=== PATIENT | female | born 1960 | race African-American/Black ===

== ENCOUNTER → 2017-02-10 | Outpatient (CLI) | payer MEDICARE, OTHER ==
[2015-07-12 11:18] VITALS: BP 153/63
[~2017-02-10] MED LIST: ASPI-482 PO; CLOP75TA PO; CLOP75TA57 PO; GADOBUTROL 10 MMOL/10 ML VIAL IV ONE; INSU100C4 SQ; INSU100V13 SQ; LOSA100T6 PO; METO25TA4 PO; OMEP40CA5 PO
--- NOTE | 2017-02-10 16:28 | KCIC ---
EXAMINATION: Magnetic resonance imaging (MRI) of the lumbar spine without contrast HISTORY: Severe radiculopathy in L5 distribution, asymmetric to the right. TECHNIQUE: Multiplanar multi-weighted MRI of the lumbar spine was performed without intravenous contrast using the standard lumbar spine protocol. Contrast information: None administered COMPARISON: None available. FINDINGS: The alignment of the lumbar spine is normal. Modic type II endplate degenerative changes are identified involving the anterior superior endplate of L5 and S1. There are no compression fractures. The conus medullaris terminates at the level of L1. The distal spinal cord signal intensity is normal. There is disc desiccation at L5-S1 with annular fissure. Limited views of the abdomen and pelvis show no soft tissue abnormality. The aorta is normal. L3-L4: The disc is normal in configuration. There is mild facet arthropathy. There is no neuroforaminal stenosis. There is no spinal canal stenosis. L4-L5: The disc is normal in configuration. There is moderate facet arthropathy with posteriorly oriented synovial cysts. Fluid is noted within the facet joints. There is mild neuroforaminal stenosis. There is no spinal canal stenosis. L5-S1: There is a central disc extrusion with narrowing of the left lateral recess. Findings are exacerbated by epidural lipomatosis There is severe facet arthropathy. There is moderate right and severe left neuroforaminal stenosis. There is mild spinal canal stenosis. IMPRESSION: There is a central disc extrusion at L5-S1 with severe facet arthropathy resulting in mild left lateral recess stenosis. There is severe left neural foraminal stenosis and moderate right neural foraminal stenosis at this level with mild spinal canal stenosis. Electronically signed by: Kenyatta Bello MD (02/10/2017 4:24 PM) [facility]-[id number]
== END | disposition home or self-care (01) ==
LOC: KCIC MRI 15:15
PROVIDERS: ATTEND Internal Medicine Cardiovascular Disease
DX: M48.061 Spinal stenosis, lumbar region without neurogenic claudication (principal); M71.38 Other bursal cyst, other site; E11.9 Type 2 diabetes mellitus without complications; I10 Essential (primary) hypertension; J45.909 Unspecified asthma, uncomplicated
CPT/HCPCS: 72148

== ENCOUNTER 2021-05-14 09:09 | Inpatient (IN) | payer BC, MEDICARE ==
[~2021-05-14] VITALS: Ht 157.5 cm; Wt 97.5 kg
[~2021-05-14 09:09] MED LIST changes: -GADOBUTROL 10 MMOL/10 ML VIAL IV ONE; +LOSA100T14 PO; -LOSA100T6 PO; -OMEP40CA5 PO; +OMEP40CA7 PO
--- NOTE | 2021-05-14 09:53 | PHYS DOC ---
Past Medical History Past Medical History: Bronchitis, CVA, Diabetes-Type II, Hypertension, TIA Additional Past Medical Histor: " THEY HAVE HAD TO STRETCH MY THROAT" LEFT SIDED RESIDUAL WEAKNESS Past Surgical History: No Surgical History Additional Past Surgical Histo: STENT PLACEMENT Smoking Status: Never Smoker Alcohol Use: None Drug Use: None General Adult EDM: Chief Complaint: FLU SYMPTOM HPI: HPI: Patient is a 61 year old female who presents with cough, shortness of breath, intermittent chest pain nausea/vomiting x7 days. Patient states she has been coughing up yellow phlegm. Patient states that she has not been able to eat anything due to decreased appetite. Denies fevers. Denies chest pain at this time. Chest pain is worse with coughing and taking a deep breath. patient has history of diabetes, CVA, hypertension, COPD. Patient has been fully vaccinated for COVID-19. Review of Systems: Review of Systems: ROS At least 10 ROS systems have been reviewed and are negative except as documented in the HPI. General: Negative except as outlined in HPI above. Skin: Negative except as outlined in HPI above. HEENT: Negative except as outlined in HPI above. Neck: Negative except as outlined in HPI above. Respiratory: Negative except as outlined in HPI above.. Cardiovascular: Negative except as outlined in HPI above. Abdomen: Negative except as outlined in HPI above. : Negative except as outlined in HPI above. Back/MSK: Negative except as outlined in HPI above. Neuro: Negative except as outlined in HPI above. Psych: Negative except as outlined in HPI above. Heart Score: C/O Chest Pain: Yes HEART Score for Chest Pain: HEART Score for Chest Pain Response (Comments) Value History Moderately Suspicious 1 ECG Normal 0 Age >45 - < 65 1 Risk Factors >3 Risk Factors or Hx CAD 2 Troponin < Normal Limit 0 Total 4 Risk Factors: Risk Factors: DM, Current or recent (<one month) smoker, HTN, HLP, family history of CAD, obesity. Risk Scores: Score 0 - 3: 2.5% MACE over next 6 weeks - Discharge Home Score 4 - 6: 20.3% MACE over next 6 weeks - Admit for Clinical Observation Score 7 - 10: 72.7% MACE over next 6 weeks - Early Invasive Strategies Allergies: Allergies: Allergies Coded Allergies Type Severity Reaction Last Updated Verified Sulfa (Sulfonamide Antibiotics) Allergy Severe Shortness of Air 07/12/15 Yes erythromycin base Allergy Intermediate 07/12/15 Yes pantoprazole Allergy Intermediate 07/12/15 Yes Physical Exam: PE: Constitutional: Well developed, well nourished, no acute distress, non-toxic appearance. [] HENT: Normocephalic, atraumatic, bilateral external ears normal, oropharynx moist, no oral exudates, nose normal. [] Eyes: PERRLA, EOMI, conjunctiva normal, no discharge. [] Neck: Normal range of motion, no tenderness, supple, no stridor. [] Cardiovascular:Heart rate regular rhythm, no murmur [] Lungs & Thorax: Bilateral breath sounds clear to auscultation [] Abdomen: Bowel sounds normal, soft, no tenderness, no masses, no pulsatile masses. [] Skin: Warm, dry, no erythema, no rash. [] Back: No tenderness, no CVA tenderness. [] Extremities: No tenderness, no cyanosis, no clubbing, ROM intact, no edema. [] Neurologic: Alert and oriented X 3, normal motor function, normal sensory function, no focal deficits noted. [] Psychologic: Affect normal, judgement normal, mood normal. [] EKG: EKG: [] Radiology/Procedures: Radiology/Procedures: []INDICATION: Reason: sob / Spl. Instructions: / History: COMPARISON: May 2013 FINDINGS: Single view of chest obtained. The mediastinal silhouette is unremarkable. Mild interstitial and groundglass opacities. Degenerative changes of shoulders and spine. IMPRESSION: * Mild interstitial and groundglass opacities bilaterally. Could be from mild edema or mild interstitial infiltrate. Electronically signed by: Jasvir Cloud MD (05/14/2021 10:42 AM) [id number] Course & Med Decision Making: Course & Med Decision Making Pertinent Labs and Imaging studies reviewed. (See chart for details) [] 61-year-old female presents with cough, shortness of breath, chest pain, nausea/vomiting for the last 7 days. Afebrile. Heart rate was slightly elevated on arrival, 108. Denies taking any daily meds due to nausea. Before work-up in ER consisted of labs, EKG, chest x-ray, UA. Patient given Zofran for nausea. BNP, 994. BUN, 30. Creatinine 1.7. Heart score 4. Rapid Covid test is positive. Patient states that she does not think that she can go home due to weakness and vomiting. Patient states she was having trouble ambulating to the bathroom on her own due to feeling so weak. Upon reassessment patient states that she feels like her speech is more slurred than normal. States that the increase and slurred speech started 1 month ago. Patient denies being seen by a physician at that time. CT head ordered. Dragon Disclaimer: Dragon Disclaimer: This electronic medical record was generated, in whole or in part, using a voice recognition dictation system. Departure Departure Impression: Primary Impression: COVID Additional Impressions: Pneumonia Qualified Codes: J18.9 - Pneumonia, unspecified organism Weakness Disposition: HOME / SELF CARE / HOMELESS Admitting Physician: MIRIAM Condition: STABLE Referrals: NO PCP (PCP) COLIN ELLIOTT APRN May 14, 2021 09:53
[2021-05-14] MEDS ORDERED: DEXAMETHASONE SOD PHOS 20 MG/5 ML VIAL. IV ONE (10:00)
[2021-05-14] MEDS ORDERED: ONDANSETRON PF 4 MG/2 ML VIAL. IVP ONE (10:00)
[2021-05-14] MEDS ORDERED: IV NORMAL SALINE 1000ML BAG 1,000 ML IV ONE (10:00)
[2021-05-14 10:08] LABS: BASO % 1 % (0-3); EOS % 0 % (0-3); HEMATOCRIT 38.7 % (36.0-47.0); HEMOGLOBIN 12.9 g/dL (12.0-15.5); LYMPH # 1.4 x10^3/uL (1.0-4.8); LYMPH % 19 % (24-48); MEAN CORPUSCULAR HEMOGLOBIN 28 pg (25-35); MEAN CORPUSCULAR HGB CONC 33 g/dL (31-37); MEAN CORPUSCULAR VOLUME 83 fL (79-100); MONO # 0.8 x10^3/uL (0.0-1.1); MONO % 12 % (0-9); NEUT # 4.7 x10^3/uL (1.8-7.7); NEUT % 68 % (31-73); PLATELET COUNT 121 x10^3/uL (140-400); RED BLOOD COUNT 4.64 x10^6/uL (3.50-5.40); RED CELL DISTRIBUTION WIDTH 13.7 % (11.5-14.5)
[2021-05-14 10:21] LABS: CALCIUM 8.9 mg/dL (8.5-10.1); CREATININE 1.7 mg/dL (0.6-1.0); GFR 36.7; POTASSIUM 4.2 mmol/L (3.5-5.1)
[2021-05-14 10:24] LABS: ALBUMIN 2.6 g/dL (3.4-5.0); ALBUMIN/GLOBULIN RATIO 0.6 (1.0-1.7); MAGNESIUM 1.7 mg/dL (1.8-2.4); TOTAL BILIRUBIN 0.3 mg/dL (0.2-1.0); TOTAL PROTEIN 7.1 g/dL (6.4-8.2)
--- NOTE | 2021-05-14 10:44 | RAD ---
INDICATION: Reason: sob / Spl. Instructions: / History: COMPARISON: May 2013 FINDINGS: Single view of chest obtained. The mediastinal silhouette is unremarkable. Mild interstitial and groundglass opacities. Degenerative changes of shoulders and spine. IMPRESSION: * Mild interstitial and groundglass opacities bilaterally. Could be from mild edema or mild intersti tial infiltrate. Electronically signed by: Jasvir Cloud MD (05/14/2021 10:42 AM) [id number]
[2021-05-14 10:55] LABS: INFLUENZA A PATIENT NEGATIVE (NEGATIVE); INFLUENZA B PATIENT NEGATIVE (NEGATIVE)
--- NOTE | 2021-05-14 14:22 | PDOC1 ---
History and Physical Date of Service: DOS: DATE: 05/14/21 TIME: 14:16 Chief Complaint: Chief Complain: Flulike symptoms History of Present Illness: HPI: 61-year-old female with past medical history of CVA, diabetes mellitus type 2, hypertension, COPD who comes in with flulike symptoms for the past 7 days. Patient states that she has been coughing up yellow sputum. She has decreased appetite due to nausea vomiting. In the ED she vomited once and is unable to tolerate p.o. diet. Denies fevers, chest pain, shortness of breath, abdominal pain or diarrhea or hematuria or dysuria. Patient is vaccinated for Covid. Past Medical/Surgical History: PMH/PSH: Past Medical History: Bronchitis, CVA, Diabetes-Type II, Hypertension, TIA " THEY HAVE HAD TO STRETCH MY THROAT" LEFT SIDED RESIDUAL WEAKNESS Past Surgical History: STENT PLACEMENT Smoking Status: Never Smoker Alcohol Use: None Drug Use: None Allergies: Allergies: Coded Allergies: Sulfa (Sulfonamide Antibiotics) (Verified Allergy, Severe, Shortness of Air, 07/12/15) SOA erythromycin base (Verified Allergy, Intermediate, 07/12/15) pantoprazole (Verified Allergy, Intermediate, 07/12/15) Family History: Family History: Reviewed with no relevant findings Social History: Social History: Smoking Status: Never Smoker Alcohol Use: None Drug Use: None Current Medications: Current Medications Current Medications Ondansetron HCl (Zofran) 4 mg 1X ONCE IVP Last administered on 05/14/21at 10:05; Start 05/14/21 at 10:00; Stop 05/14/21 at 10:01; Status DC Sodium Chloride 1,000 ml @ 1,000 mls/hr 1X ONCE IV Last administered on 05/14/21at 10:05; Start 05/14/21 at 10:00; Stop 05/14/21 at 10:59; Status DC Dexamethasone Sodium Phosphate (Decadron) 10 mg 1X ONCE IV Last administered on 05/14/21at 10:05; Start 05/14/21 at 10:00; Stop 05/14/21 at 10:01; Status DC Active Scripts Active Reported Omeprazole 40 Mg Capsule.dr Unknown Dose PO DAILY Metoprolol Tartrate 25 Mg Tablet Unknown Dose PO BID Plavix (Clopidogrel Bisulfate) 75 Mg Tablet Unknown Dose PO DAILY Levemir (Insulin Detemir) 100 Unit/1 Ml Vial 30 Unit SQ QHS Novolog (Insulin Aspart) 100 Unit/1 Ml Cartridge 10 Unit SQ TIDWMEALS Aspir 81 (Aspirin) 81 Mg Tablet. 1 Tab PO DAILY Clopidogrel (Clopidogrel Bisulfate) 75 Mg Tablet 1 Tab PO DAILY Losartan Potassium 100 Mg Tablet 100 Mg PO [id number] ROS: Review of Systems Review of System REVIEW OF SYSTEMS: GENERAL: Denies weakness SKIN: No bruising, hair changes or rashes. EYES: No blurred, double or loss of vision. NOSE AND THROAT: No history of nosebleeds, hoarseness or sore throat. HEART: No history of palpitations, chest pain or shortness of breath on exertion. LUNGS: Positive for cough and shortness of breath GASTROINTESTINAL: Positive for nausea vomiting GENITOURINARY: No history of frequency, urgency, hesitancy or nocturia. NEUROLOGIC: Denies history of numbness, tingling, or tremor. PSYCHIATRIC: No history of panic, anxiety or depression. ENDOCRINE: No history of heat or cold intolerance, polyuria or polydipsia. EXTREMITIES: Denies joint pain, pain on walking or stiffness. Physical Exam: Vital Signs: Vital Signs Date Time Temp Pulse Resp B/P (MAP) Pulse Ox O2 Delivery O2 Flow Rate FiO2 05/14/21 09:20 98.9 105 12 158/72 (100) 98 Room Air 98.9 Physcial Exam: General: Well developed, well nourished, no acute distress, well appearing HEENT: Pupils equally round and reactive to light, EOMI, no discharge, normal conjunctiva Neck: Supple, no nuchal rigidity, no JVD, trachea midline, no tenderness Cardiac: RRR, no murmurs, no gallops, no rubs Chest/Lungs: CTAB, no wheeze, no rhonchi, no crackles Abdomen: soft, non-distended, no guarding, no peritoneal signs, non-tender Back: No tenderness Extremities: no edema, pulses intact, non-tender,capillary refill <3 sec bilateral upper and lower extremities, Neuro: Alert and oriented x 4, no focal deficits, normal speech Labs: Labs: Laboratory Tests Test 05/14/21 09:57 05/14/21 10:21 White Blood Count 7.0 x10^3/uL (4.0-11.0) Red Blood Count 4.64 x10^6/uL (3.50-5.40) Hemoglobin 12.9 g/dL (12.0-15.5) Hematocrit 38.7 % (36.0-47.0) Mean Corpuscular Volume 83 fL (79-100) Mean Corpuscular Hemoglobin 28 pg (25-35) Mean Corpuscular Hemoglobin Concent 33 g/dL (31-37) Red Cell Distribution Width 13.7 % (11.5-14.5) Platelet Count 121 x10^3/uL (140-400) Neutrophils (%) (Auto) 68 % (31-73) Lymphocytes (%) (Auto) 19 % (24-48) Monocytes (%) (Auto) 12 % (0-9) Eosinophils (%) (Auto) 0 % (0-3) Basophils (%) (Auto) 1 % (0-3) Neutrophils # (Auto) 4.7 x10^3/uL (1.8-7.7) Lymphocytes # (Auto) 1.4 x10^3/uL (1.0-4.8) Monocytes # (Auto) 0.8 x10^3/uL (0.0-1.1) Eosinophils # (Auto) 0.0 x10^3/uL (0.0-0.7) Basophils # (Auto) 0.0 x10^3/uL (0.0-0.2) D-Dimer (Delisa) 1.58 ug/mlFEU (0.00-0.50) Sodium Level 137 mmol/L (136-145) Potassium Level 4.2 mmol/L (3.5-5.1) Chloride Level 101 mmol/L (98-107) Carbon Dioxide Level 25 mmol/L (21-32) Anion Gap 11 (6-14) Blood Urea Nitrogen 30 mg/dL (7-20) Creatinine 1.7 mg/dL (0.6-1.0) Estimated GFR (Cockcroft-Gault) 36.7 BUN/Creatinine Ratio 18 (6-20) Glucose Level 163 mg/dL (70-99) Calcium Level 8.9 mg/dL (8.5-10.1) Magnesium Level 1.7 mg/dL (1.8-2.4) Total Bilirubin 0.3 mg/dL (0.2-1.0) Aspartate Amino Transf (AST/SGOT) 37 U/L (15-37) Alanine Aminotransferase (ALT/SGPT) 21 U/L (14-59) Alkaline Phosphatase 76 U/L (46-116) Troponin I High Sensitivity 46 ng/L (4-50) RV-Aqv-S-Type Natriuretic Peptide 994 pg/mL (0-124) Total Protein 7.1 g/dL (6.4-8.2) Albumin 2.6 g/dL (3.4-5.0) Albumin/Globulin Ratio 0.6 (1.0-1.7) Influenza Type A Antigen Negative (NEGATIVE) Influenza Type B Antigen Negative (NEGATIVE) SARS-CoV-2 Antigen (Rapid) Positive (NEGATIVE) Laboratory Tests Test 05/14/21 09:57 05/14/21 10:21 White Blood Count 7.0 x10^3/uL (4.0-11.0) Red Blood Count 4.64 x10^6/uL (3.50-5.40) Hemoglobin 12.9 g/dL (12.0-15.5) Hematocrit 38.7 % (36.0-47.0) Mean Corpuscular Volume 83 fL (79-100) Mean Corpuscular Hemoglobin 28 pg (25-35) Mean Corpuscular Hemoglobin Concent 33 g/dL (31-37) Red Cell Distribution Width 13.7 % (11.5-14.5) Platelet Count 121 x10^3/uL (140-400) Neutrophils (%) (Auto) 68 % (31-73) Lymphocytes (%) (Auto) 19 % (24-48) Monocytes (%) (Auto) 12 % (0-9) Eosinophils (%) (Auto) 0 % (0-3) Basophils (%) (Auto) 1 % (0-3) Neutrophils # (Auto) 4.7 x10^3/uL (1.8-7.7) Lymphocytes # (Auto) 1.4 x10^3/uL (1.0-4.8) Monocytes # (Auto) 0.8 x10^3/uL (0.0-1.1) Eosinophils # (Auto) 0.0 x10^3/uL (0.0-0.7) Basophils # (Auto) 0.0 x10^3/uL (0.0-0.2) D-Dimer (Delisa) 1.58 ug/mlFEU (0.00-0.50) Sodium Level 137 mmol/L (136-145) Potassium Level 4.2 mmol/L (3.5-5.1) Chloride Level 101 mmol/L (98-107) Carbon Dioxide Level 25 mmol/L (21-32) Anion Gap 11 (6-14) Blood Urea Nitrogen 30 mg/dL (7-20) Creatinine 1.7 mg/dL (0.6-1.0) Estimated GFR (Cockcroft-Gault) 36.7 BUN/Creatinine Ratio 18 (6-20) Glucose Level 163 mg/dL (70-99) Calcium Level 8.9 mg/dL (8.5-10.1) Magnesium Level 1.7 mg/dL (1.8-2.4) Total Bilirubin 0.3 mg/dL (0.2-1.0) Aspartate Amino Transf (AST/SGOT) 37 U/L (15-37) Alanine Aminotransferase (ALT/SGPT) 21 U/L (14-59) Alkaline Phosphatase 76 U/L (46-116) Troponin I High Sensitivity 46 ng/L (4-50) HU-Llo-J-Type Natriuretic Peptide 994 pg/mL (0-124) Total Protein 7.1 g/dL (6.4-8.2) Albumin 2.6 g/dL (3.4-5.0) Albumin/Globulin Ratio 0.6 (1.0-1.7) Influenza Type A Antigen Negative (NEGATIVE) Influenza Type B Antigen Negative (NEGATIVE) SARS-CoV-2 Antigen (Rapid) Positive (NEGATIVE) Images: Images PROCEDURE: CHEST AP ONLY INDICATION: Reason: sob / Spl. Instructions: / History: COMPARISON: May 2013 FINDINGS: Single view of chest obtained. The mediastinal silhouette is unremarkable. Mild interstitial and groundglass opacities. Degenerative changes of shoulders and spine. IMPRESSION: * Mild interstitial and groundglass opacities bilaterally. Could be from mild edema or mild interstitial infiltrate. Assessment/Plan Assessment/Plan Intractable nausea vomiting COVID-19 infection Acute on chronic kidney injury due to vasomotor nephropathy Hypomagnesemia Thrombocytopenia Debilitation and failure to thrive Morbid obesity History of diabetes mellitus type 2 History of hypertension History of CVA History of COPD/bronchitis Admit to hospitalist service for further management Continue IV fluids NPO and advance diet as tolerated Continue supportive care care for Covid infection. Patient not any oxygen at this time we will hold off on O2 therapy Strict I/O and monitor urine output IV electrolyte replacement R ISS and Accu-Cheks Heparin for DVT prophylaxis Protonix GI prophylaxis ADA diet CODE STATUS full Discussed with RN and SW Disposition inpatient management as above DPOA: Daughter Justifications for Admission Other Justification LARRY RIGGINS MD May 14, 2021 14:21
[2021-05-14] MEDS ORDERED: SENNOSIDES 8.6 MG TABLET PO PRN (14:30)
[2021-05-14] MEDS ORDERED: diphenhydrAMINE HCL 25 MG CAPSULE PO PRN (14:30)
[2021-05-14] MEDS ORDERED: PROCHLORPERAZINE 10 MG/2 ML VIAL. IV PRN (14:30)
[2021-05-14] MEDS ORDERED: ZOLPIDEM 5 MG TABLET. PO PRN (14:30)
[2021-05-14] MEDS ORDERED: ONDANSETRON PF 4 MG/2 ML VIAL. IVP PRN (14:30)
[2021-05-14] MEDS ORDERED: diphenhydrAMINE 50 MG/ML VIAL IVP PRN (14:30)
[2021-05-14] MEDS ORDERED: MAGNESIUM SULFATE 2GM 50 ML IV ONE (14:45)
[2021-05-14] MEDS ORDERED: cefTRIAXone IV Push 1 GM VIAL. IVP ONE (15:00)
--- NOTE | 2021-05-14 15:27 | RAD ---
CT HEAD INDICATION: Weakness COMPARISON: None Available. Exposure: One or more of the following individualized dose reduction techniques were utilized for thi s examination: 1. Automated exposure control 2. Adjustment of the mA and/or kV according to patient size 3. Use of iterative reconstruction technique TECHNIQUE: 5 mm contiguous axial images were obtained from the skull base to the vertex in both bone and soft tissue algorithm. FINDINGS: Mild bilateral periventricular white matter hypodensities likely chronic small vessel ischemic diseas e. No evidence of acute intracranial hemorrhage. No extra-axial fluid collections. No mass effect or midline shift. Ventricular size is appropriate. Basal cisterns are patent. No fractures identified.Rosales-white differentiation is preserved.Globes and orbits are within normal l imits. Paranasal sinuses and mastoid air cells are clear. IMPRESSION: No acute intracranial findings. Electronically signed by: Parth Espinosa MD (05/14/2021 3:24 PM) [id number]
--- NOTE | 2021-05-14 15:34 | EKG ---
[facility] [address] [place] [address] Test Date: 2021-05-14 Test Time: 09:32:42 Pat Name: JEANCARLOS OLIVARES Department: Room: ED HOLD 16 Gender: F Cell Inspector: : [id number] Requested By: COLIN ELLIOTT Order Number: [id number] Reading MD: Malcolm Deleon Measurements Intervals [place] Rate: 107 P: 59 NM: 120 QRS: 22 QRSD: 102 T: 62 QT: 342 QTc: 456 Interpretive Statements SINUS TACHYCARDIA QRS(T) CONTOUR ABNORMALITY CONSISTENT WITH INFERIOR INFARCT PROBABLY OLD Electronically Signed On 05-15-2021 15:00:23 DRAG SAWYER by Malcolm Deleon
[2021-05-14] MEDS ORDERED: AZITHRMYCN 500MG IVPB FOR OMNI 250 ML IV ONE (17:00)
[2021-05-14] MEDS: THIAMINE 100 MG TABLET. PO SCH (17:15)
[2021-05-14] MEDS: ZINC SULFATE 220 MG CAPSULE. PO SCH (17:15)
[2021-05-14] MEDS: ASCORBIC ACID 1,000 MG TABLET PO SCH ×2 (17:16→21:33)
[2021-05-14] MEDS: IV NORMAL SALINE 1000ML BAG 1,000 ML IV SCH ×2 (18:38→19:00)
[2021-05-14 19:00] VITALS: BP 153/76
--- NOTE | 2021-05-14 19:00 | NUR ---
The patient, JEANCARLOS OLIVARES, 61 y/o, F admitted by LARRY RIGGINS MD, was given written information regarding hospital policies, unit procedures and contact persons. Valuables were checked and left with her.
[2021-05-14] MEDS: INSULIN LISPRO 300 UNITS/3 ML VIAL. SQ SCH (20:29)
[2021-05-14] MEDS: DOCUSATE SODIUM 100 MG CAPSULE. PO PRN (21:32)
[2021-05-14] MEDS: LORazepam 0.5 MG TABLET PO PRN (21:32)
[2021-05-14] MEDS: diphenhydrAMINE HCL 25 MG CAPSULE PO PRN (21:32)
[2021-05-14] MEDS: ACETAMINOPHEN 325 MG TABLET. PO PRN (21:33)
[2021-05-14] MEDS: HEPARIN for SUB-Q USE 5,000 UNIT/ML VIAL. SQ SCH (21:35)
[2021-05-14 23:46] VITALS: BP 129/60
[2021-05-15] MEDS: IV NORMAL SALINE 1000ML BAG 1,000 ML IV SCH ×4 (02:01→20:30)
[2021-05-15 02:54] VITALS: BP 119/60
[2021-05-15 07:30] VITALS: BP 127/64
[2021-05-15 08:21] LABS: CALCIUM 7.9 mg/dL (8.5-10.1); CREATININE 1.5 mg/dL (0.6-1.0); GFR 42.4; MAGNESIUM 2.2 mg/dL (1.8-2.4); PHOSPHORUS 3.8 mg/dL (2.6-4.7); POTASSIUM 4.4 mmol/L (3.5-5.1)
[2021-05-15 08:22] LABS: BASO % 0 % (0-3); EOS % 0 % (0-3); HEMATOCRIT 37.4 % (36.0-47.0); HEMOGLOBIN 12.4 g/dL (12.0-15.5); LYMPH % 18 % (24-48); MEAN CORPUSCULAR HEMOGLOBIN 28 pg (25-35); MEAN CORPUSCULAR HGB CONC 33 g/dL (31-37); MEAN CORPUSCULAR VOLUME 84 fL (79-100); MONO # 0.5 x10^3/uL (0.0-1.1); MONO % 9 % (0-9); NEUT # 4.1 x10^3/uL (1.8-7.7); NEUT % 73 % (31-73); PLATELET COUNT 123 x10^3/uL (140-400); RED BLOOD COUNT 4.48 x10^6/uL (3.50-5.40); WHITE BLOOD COUNT 5.7 x10^3/uL (4.0-11.0)
[2021-05-15] MEDS: ZINC SULFATE 220 MG CAPSULE. PO SCH (08:50)
[2021-05-15] MEDS: THIAMINE 100 MG TABLET. PO SCH (08:50)
[2021-05-15] MEDS: ASCORBIC ACID 1,000 MG TABLET PO SCH ×3 (08:50→20:52)
[2021-05-15] MEDS: HEPARIN for SUB-Q USE 5,000 UNIT/ML VIAL. SQ SCH ×2 (08:52→20:53)
[2021-05-15] MEDS: INSULIN LISPRO 300 UNITS/3 ML VIAL. SQ SCH ×4 (08:53→17:30)
--- NOTE | 2021-05-15 10:16 | NUR ---
SW following. Discussed with RN, pt from [facility], room air, cardiac diet, COVID-19 positive. PT/OT/ST ordered. SW will continue to follow.
[2021-05-15] MEDS ORDERED: guaiFENesin/CODEINE 100mg/10mg 5 ML LIQUID PO PRN (10:45)
[2021-05-15 11:00] VITALS: BP 121/63
--- NOTE | 2021-05-15 11:33 | PDOC ---
[employer] PROGRESS NOTE Date of Service DOS: DATE: 05/15/21 TIME: 11:30 Chief Complaint Chief Complaint 1. COVID Pneumonia 2. Nausea/Vomiting 3. History of: CVA, COPD/bronchitis, HTN, type 2 diabetes, TIA History of Present Illness History of Present Illness Patient seen and examined Chart reviewed Discussed with RN Awaiting PT/OT evaluation and swallow study Patient currently on room air and resting comfortably Has PureWick in place, tolerating well Vitals/I&O Vitals/I&O: Vital Signs Date Time Temp Pulse Resp B/P (MAP) Pulse Ox O2 Delivery O2 Flow Rate FiO2 05/15/21 07:30 97.7 82 18 127/64 (85) 92 Room Air 97.7 I & O 05/14/21 05/14/21 05/15/21 14:59 22:59 06:59 Intake Total 670 ml 1120 ml Output Total 350 ml Balance 670 ml 770 ml Physical Exam General: Alert Heart: Regular rate Abdomen: Normal bowel sounds Extremities: No clubbing, No cyanosis Skin: No rashes, No breakdown Labs Labs: Laboratory Tests Test 05/14/21 17:12 05/14/21 20:00 05/15/21 07:35 05/15/21 07:59 Glucose (Fingerstick) 260 mg/dL (70-99) 311 mg/dL (70-99) 274 mg/dL (70-99) White Blood Count 5.7 x10^3/uL (4.0-11.0) Red Blood Count 4.48 x10^6/uL (3.50-5.40) Hemoglobin 12.4 g/dL (12.0-15.5) Hematocrit 37.4 % (36.0-47.0) Mean Corpuscular Volume 84 fL (79-100) Mean Corpuscular Hemoglobin 28 pg (25-35) Mean Corpuscular Hemoglobin Concent 33 g/dL (31-37) Red Cell Distribution Width 14.0 % (11.5-14.5) Platelet Count 123 x10^3/uL (140-400) Neutrophils (%) (Auto) 73 % (31-73) Lymphocytes (%) (Auto) 18 % (24-48) Monocytes (%) (Auto) 9 % (0-9) Eosinophils (%) (Auto) 0 % (0-3) Basophils (%) (Auto) 0 % (0-3) Neutrophils # (Auto) 4.1 x10^3/uL (1.8-7.7) Lymphocytes # (Auto) 1.0 x10^3/uL (1.0-4.8) Monocytes # (Auto) 0.5 x10^3/uL (0.0-1.1) Eosinophils # (Auto) 0.0 x10^3/uL (0.0-0.7) Basophils # (Auto) 0.0 x10^3/uL (0.0-0.2) Sodium Level 135 mmol/L (136-145) Potassium Level 4.4 mmol/L (3.5-5.1) Chloride Level 104 mmol/L (98-107) Carbon Dioxide Level 23 mmol/L (21-32) Anion Gap 8 (6-14) Blood Urea Nitrogen 37 mg/dL (7-20) Creatinine 1.5 mg/dL (0.6-1.0) Estimated GFR (Cockcroft-Gault) 42.4 Glucose Level 285 mg/dL (70-99) Calcium Level 7.9 mg/dL (8.5-10.1) Phosphorus Level 3.8 mg/dL (2.6-4.7) Magnesium Level 2.2 mg/dL (1.8-2.4) Assessment and Plan Assessmemt and Plan Problems Medical Problems: (1) COVID Status: Acute (2) Pneumonia Status: Acute (3) Weakness Status: Acute Assessment: 1. COVID Pneumonia 2. Nausea/Vomiting 3. History of: CVA, COPD/bronchitis, HTN, type 2 diabetes, TIA Plan: COVID protocol including: Rocephin, doxycycline, solumedrol, aspirin, multivitamin with minerals, guaifenesin with codeine Continue home meds DVT prophylaxis Full code Comment Review of Relevant I have reviewed the following items randi (where applicable) has been applied. Medications: Current Medications Medications (Trade) Dose Ordered Sig/Loulou Route PRN Reason Start Time Stop Time Status Last Admin Dose Admin Ascorbic Acid (Vitamin C) 3,000 mg TID PO 05/14/21 15:00 05/15/21 08:50 Thiamine Mononitrate (Vitamin B-1) 300 mg DAILY PO 05/14/21 15:00 05/15/21 08:50 Zinc Sulfate (Orazinc) 220 mg DAILY PO 05/14/21 15:00 05/15/21 08:50 Docusate Sodium (Colace) 100 mg PRN DAILY PRN PO HARD STOOLS 05/14/21 14:30 05/14/21 21:32 Ondansetron HCl (Zofran) 4 mg PRN Q6HRS PRN IVP NAUSEA/VOMITING, 1st CHOICE 05/14/21 14:30 05/14/21 17:15 Insulin Human Lispro (HumaLOG) 0-7 UNITS TIDWMEALS SQ 05/14/21 17:00 05/15/21 08:53 Sodium Chloride 1,000 ml @ 100 mls/hr Q10H IV 05/14/21 14:30 05/15/21 04:42 Acetaminophen (Tylenol) 650 mg PRN Q4HRS PRN PO TEMP OVER 100.4F OR MILD PAIN 05/14/21 14:30 05/14/21 21:33 Lorazepam (Ativan) 0.5 mg PRN Q6HRS PRN PO ANXIETY / AGITATION 05/14/21 14:30 05/14/21 21:32 Heparin Sodium (Porcine) (Heparin Sodium) 5,000 unit Q12HR SQ 05/14/21 21:00 05/15/21 08:52 Diphenhydramine HCl (Benadryl) 25 mg PRN QHS PRN PO INSOMNIA 05/14/21 14:30 05/14/21 21:32 Magnesium Sulfate 50 ml @ 25 mls/hr 1X ONCE IV 05/14/21 14:45 05/14/21 16:44 DC 05/14/21 17:35 Azithromycin 250 ml @ 250 mls/hr 1X ONCE IV 05/14/21 17:00 05/14/21 17:59 DC 05/14/21 19:00 Ceftriaxone Sodium (Rocephin) 1 gm 1X ONCE IVP 05/14/21 15:00 05/14/21 15:01 DC 05/14/21 17:35 Sodium Chloride 1,000 ml @ 75 mls/hr [id number] IV 05/14/21 15:00 05/15/21 14:59 05/14/21 19:00 Justifications for Admission Other Justification Intractable nausea vomiting and COVID-19 infection DARLEEN URIBE III DO May 15, 2021 11:33
[2021-05-15] MEDS: cefTRIAXone IV Push 1 GM VIAL. IVP SCH (12:00)
[2021-05-15] MEDS: ASPIRIN CHEWABLE 81 MG TABLET. PO SCH (12:00)
[2021-05-15] MEDS: DOXYCYCLINE HYCLATE 100 MG in IV DEXTROSE 5% 100ML 100 ML IV SCH ×2 (12:01→20:54)
[2021-05-15] MEDS: methylPREDNISolone SOD SUCC PF 40 MG/ML VIAL. IV SCH ×2 (12:01→20:52)
[2021-05-15] MEDS ORDERED: ATOR40TA59 PO (12:33)
[2021-05-15] MEDS ORDERED: LISI20TA18 PO (12:33)
[2021-05-15] MEDS ORDERED: INSU100V6 SQ (12:33)
[2021-05-15 15:00] VITALS: BP 126/84
[2021-05-15 19:00] VITALS: BP 143/67
[2021-05-15] MEDS: LORazepam 0.5 MG TABLET PO PRN (20:52)
[2021-05-15] MEDS: diphenhydrAMINE HCL 25 MG CAPSULE PO PRN (20:52)
[2021-05-15] MEDS: ATORVASTATIN CALCIUM 40 MG TABLET. PO SCH (20:52)
[2021-05-15] MEDS: ACETAMINOPHEN 325 MG TABLET. PO PRN (20:52)
[2021-05-15] MEDS: INSULIN GLARGINE SYRINGE. SQ SCH (20:54)
[2021-05-15 22:47] VITALS: BP 153/65
[2021-05-16 03:07] VITALS: BP 149/60
[2021-05-16] MEDS: IV NORMAL SALINE 1000ML BAG 1,000 ML IV SCH ×2 (05:19→15:25)
[2021-05-16 06:00] LABS: CALCIUM 8.1 mg/dL (8.5-10.1); CREATININE 1.3 mg/dL (0.6-1.0); GFR 50.1
[2021-05-16 06:08] LABS: BASO % 0 % (0-3); EOS % 0 % (0-3); HEMATOCRIT 37.3 % (36.0-47.0); HEMOGLOBIN 12.3 g/dL (12.0-15.5); LYMPH # 0.8 x10^3/uL (1.0-4.8); LYMPH % 7 % (24-48); MEAN CORPUSCULAR HEMOGLOBIN 27 pg (25-35); MEAN CORPUSCULAR HGB CONC 33 g/dL (31-37); MEAN CORPUSCULAR VOLUME 83 fL (79-100); MONO # 0.5 x10^3/uL (0.0-1.1); MONO % 4 % (0-9); NEUT # 10.3 x10^3/uL (1.8-7.7); NEUT % 89 % (31-73); PLATELET COUNT 150 x10^3/uL (140-400); RED CELL DISTRIBUTION WIDTH 13.8 % (11.5-14.5); WHITE BLOOD COUNT 11.6 x10^3/uL (4.0-11.0)
[2021-05-16 07:00] VITALS: BP 142/70
[2021-05-16] MEDS: THIAMINE 100 MG TABLET. PO SCH (08:43)
[2021-05-16] MEDS: ZINC SULFATE 220 MG CAPSULE. PO SCH (08:43)
[2021-05-16] MEDS: methylPREDNISolone SOD SUCC PF 40 MG/ML VIAL. IV SCH ×2 (08:44→21:16)
[2021-05-16] MEDS: ASPIRIN CHEWABLE 81 MG TABLET. PO SCH (08:44)
[2021-05-16] MEDS: ASCORBIC ACID 1,000 MG TABLET PO SCH ×3 (08:44→21:16)
[2021-05-16] MEDS: DOXYCYCLINE HYCLATE 100 MG in IV DEXTROSE 5% 100ML 100 ML IV SCH ×2 (08:45→21:15)
[2021-05-16] MEDS: INSULIN LISPRO 300 UNITS/3 ML VIAL. SQ SCH ×6 (08:49→16:39)
[2021-05-16] MEDS: HEPARIN for SUB-Q USE 5,000 UNIT/ML VIAL. SQ SCH ×2 (08:49→20:47)
[2021-05-16] MEDS: CLOPIDOGREL BISULFATE 75 MG TABLET PO SCH (08:50)
--- NOTE | 2021-05-16 10:19 | PDOC ---
[employer] PROGRESS NOTE Date of Service DOS: DATE: 05/16/21 TIME: 10:16 Chief Complaint Chief Complaint 1. COVID Pneumonia 2. Nausea/Vomiting 3. History of: CVA, COPD/bronchitis, HTN, type 2 diabetes, TIA History of Present Illness History of Present Illness Patient seen and examined Chart reviewed Discussed with RN Patient currently on room air and resting comfortably DASHBOARD DEVELOPER completed swallow study, appreciated recommendations Discussed with patient possible discharge to rehab, patient previously living at [facility]. Vitals/I&O Vitals/I&O: Vital Signs Date Time Temp Pulse Resp B/P (MAP) Pulse Ox O2 Delivery O2 Flow Rate FiO2 05/16/21 08:00 Room Air 05/16/21 07:00 98.5 82 18 142/70 (94) 93 98.5 I & O 05/15/21 05/15/21 05/16/21 15:00 23:00 07:00 Intake Total 300 ml 1420 ml 360 ml Output Total 300 ml 350 ml Balance 300 ml 1120 ml 10 ml Physical Exam General: Alert Heart: Regular rate Abdomen: Normal bowel sounds Extremities: No clubbing, No cyanosis Skin: No rashes, No breakdown Labs Labs: Laboratory Tests Test 05/15/21 11:44 05/15/21 16:54 05/15/21 20:35 05/16/21 05:30 Glucose (Fingerstick) 293 mg/dL (70-99) 361 mg/dL (70-99) 281 mg/dL (70-99) White Blood Count 11.6 x10^3/uL (4.0-11.0) Red Blood Count 4.50 x10^6/uL (3.50-5.40) Hemoglobin 12.3 g/dL (12.0-15.5) Hematocrit 37.3 % (36.0-47.0) Mean Corpuscular Volume 83 fL (79-100) Mean Corpuscular Hemoglobin 27 pg (25-35) Mean Corpuscular Hemoglobin Concent 33 g/dL (31-37) Red Cell Distribution Width 13.8 % (11.5-14.5) Platelet Count 150 x10^3/uL (140-400) Neutrophils (%) (Auto) 89 % (31-73) Lymphocytes (%) (Auto) 7 % (24-48) Monocytes (%) (Auto) 4 % (0-9) Eosinophils (%) (Auto) 0 % (0-3) Basophils (%) (Auto) 0 % (0-3) Neutrophils # (Auto) 10.3 x10^3/uL (1.8-7.7) Lymphocytes # (Auto) 0.8 x10^3/uL (1.0-4.8) Monocytes # (Auto) 0.5 x10^3/uL (0.0-1.1) Eosinophils # (Auto) 0.0 x10^3/uL (0.0-0.7) Basophils # (Auto) 0.0 x10^3/uL (0.0-0.2) Sodium Level 139 mmol/L (136-145) Potassium Level 4.0 mmol/L (3.5-5.1) Chloride Level 107 mmol/L (98-107) Carbon Dioxide Level 23 mmol/L (21-32) Anion Gap 9 (6-14) Blood Urea Nitrogen 35 mg/dL (7-20) Creatinine 1.3 mg/dL (0.6-1.0) Estimated GFR (Cockcroft-Gault) 50.1 Glucose Level 217 mg/dL (70-99) Calcium Level 8.1 mg/dL (8.5-10.1) Magnesium Level 2.0 mg/dL (1.8-2.4) Test 05/16/21 08:15 Glucose (Fingerstick) 211 mg/dL (70-99) Assessment and Plan Assessmemt and Plan Problems Medical Problems: (1) COVID Status: Acute (2) Pneumonia Status: Acute (3) Weakness Status: Acute Assessment: 1. COVID Pneumonia 2. Nausea/Vomiting 3. History of: CVA, COPD/bronchitis, HTN, type 2 diabetes, TIA Plan: Continue COVID protocol: Rocephin, doxycycline, solumedrol, aspirin, multivitamin with minerals, guaifenesin with codeine Continue home meds DVT prophylaxis Full code PT/OT Dysphagia II Diet with thin liquids Comment Review of Relevant I have reviewed the following items randi (where applicable) has been applied. Medications: Current Medications Medications (Trade) Dose Ordered Sig/Loulou Route PRN Reason Start Time Stop Time Status Last Admin Dose Admin Methylprednisolone Sodium Succinate (SOLU-Medrol 40MG VIAL) 40 mg BID IV 05/15/21 11:00 05/16/21 08:44 Ceftriaxone Sodium (Rocephin) 1 gm Q24H IVP 05/15/21 11:00 05/15/21 12:00 Doxycycline Hyclate 100 mg/ Dextrose 100 ml @ 50 mls/hr Q12HR IV 05/15/21 11:00 05/16/21 08:45 Aspirin (Aspirin Chewable) 81 mg DAILYWBKFT PO 05/15/21 11:00 05/16/21 08:44 Atorvastatin Calcium (Lipitor) 40 mg QHS PO 05/15/21 21:00 05/15/21 20:52 Insulin Glargine (Lantus Syringe) 60 unit QHS SQ 05/15/21 21:00 05/15/21 20:54 Insulin Human Lispro (HumaLOG) 20 units TIDWMEALS SQ 05/15/21 17:00 05/16/21 08:50 Clopidogrel Bisulfate (Plavix) 75 mg DAILYWBKFT PO 05/16/21 08:00 05/16/21 08:50 Justifications for Admission Other Justification Intractable nausea vomiting and COVID-19 infection DARLEEN URIBE III DO May 16, 2021 10:19
[2021-05-16 11:00] VITALS: BP 120/61
[2021-05-16] MEDS: cefTRIAXone IV Push 1 GM VIAL. IVP SCH (11:40)
--- NOTE | 2021-05-16 12:42 | NUR ---
SW following. Discussed with RN, pt from home at [facility], room air, dysphagia II, COVID-19 positive. Therapy recommending acute rehab. JUAN spoke with pt, pt wants to go home with home health because she has a support dog she needs to take care of and there isn't anyone who can watch her dog. Pt does not have a preference of home health company. [facility]UAN spoke with [facility] RN, they can accept pt and see her Wednesday next week. RN notified. JUAN will continue to follow.
[2021-05-16 15:03] VITALS: BP 144/60
[2021-05-16 19:00] VITALS: BP 154/70
[2021-05-16] MEDS: INSULIN GLARGINE SYRINGE. SQ SCH (20:48)
[2021-05-16] MEDS: LACTOBACILLUS RHAMNOSUS GG 1 CAPSULE. PO SCH (21:15)
[2021-05-16] MEDS: LORazepam 0.5 MG TABLET PO PRN (21:15)
[2021-05-16] MEDS: diphenhydrAMINE HCL 25 MG CAPSULE PO PRN (21:15)
[2021-05-16] MEDS: ATORVASTATIN CALCIUM 40 MG TABLET. PO SCH (21:15)
[2021-05-16] MEDS: ACETAMINOPHEN 325 MG TABLET. PO PRN (21:16)
[2021-05-16 23:00] VITALS: BP 153/70
[2021-05-17] MEDS: IV NORMAL SALINE 1000ML BAG 1,000 ML IV SCH ×3 (01:47→22:13)
[2021-05-17 03:00] VITALS: BP 159/76
[2021-05-17 07:00] VITALS: BP 170/67
[2021-05-17 07:11] LABS: BASO # 0.1 x10^3/uL (0.0-0.2); BASO % 1 % (0-3); EOS % 0 % (0-3); HEMATOCRIT 37.1 % (36.0-47.0); HEMOGLOBIN 12.2 g/dL (12.0-15.5); LYMPH # 0.7 x10^3/uL (1.0-4.8); LYMPH % 6 % (24-48); MEAN CORPUSCULAR HEMOGLOBIN 27 pg (25-35); MEAN CORPUSCULAR HGB CONC 33 g/dL (31-37); MEAN CORPUSCULAR VOLUME 83 fL (79-100); MONO # 0.6 x10^3/uL (0.0-1.1); MONO % 5 % (0-9); NEUT # 10.2 x10^3/uL (1.8-7.7); NEUT % 88 % (31-73); PLATELET COUNT 194 x10^3/uL (140-400); RED BLOOD COUNT 4.47 x10^6/uL (3.50-5.40); RED CELL DISTRIBUTION WIDTH 14.3 % (11.5-14.5); WHITE BLOOD COUNT 11.6 x10^3/uL (4.0-11.0)
[2021-05-17 07:31] LABS: CALCIUM 8.2 mg/dL (8.5-10.1); CREATININE 1.1 mg/dL (0.6-1.0); GFR 60.7; MAGNESIUM 1.9 mg/dL (1.8-2.4); POTASSIUM 3.9 mmol/L (3.5-5.1)
[2021-05-17] MEDS: INSULIN LISPRO 300 UNITS/3 ML VIAL. SQ SCH ×6 (08:00→17:19)
[2021-05-17] MEDS: LACTOBACILLUS RHAMNOSUS GG 1 CAPSULE. PO SCH ×2 (08:55→20:54)
[2021-05-17] MEDS: THIAMINE 100 MG TABLET. PO SCH (08:55)
[2021-05-17] MEDS: ZINC SULFATE 220 MG CAPSULE. PO SCH (08:55)
[2021-05-17] MEDS: ASCORBIC ACID 1,000 MG TABLET PO SCH ×4 (08:56→20:53)
[2021-05-17] MEDS: methylPREDNISolone SOD SUCC PF 40 MG/ML VIAL. IV SCH ×2 (08:56→20:49)
[2021-05-17] MEDS: CLOPIDOGREL BISULFATE 75 MG TABLET PO SCH (08:56)
[2021-05-17] MEDS: ASPIRIN CHEWABLE 81 MG TABLET. PO SCH (08:56)
[2021-05-17] MEDS: HEPARIN for SUB-Q USE 5,000 UNIT/ML VIAL. SQ SCH ×2 (08:57→20:58)
[2021-05-17] MEDS: DOXYCYCLINE HYCLATE 100 MG in IV DEXTROSE 5% 100ML 100 ML IV SCH ×2 (09:00→20:48)
[2021-05-17 11:00] VITALS: BP 168/72
[2021-05-17] MEDS: cefTRIAXone IV Push 1 GM VIAL. IVP SCH (12:13)
[2021-05-17 15:00] VITALS: BP 156/72
--- NOTE | 2021-05-17 16:39 | PDOC ---
GENERAL General: Patient examined chart reviewed today is hospital day 4 for this patient with underlying debility from a history of stroke, hypertension, and well-controlled type 2 diabetes. She was admitted with generalized weakness, malaise, and inability to care for herself at home secondary to Covid 19. She is improving nicely with conservative treatment. She lives at a senior assisted living and is hoping to avoid a rehab stay given that she has a service animal at home. [facility] is ready to take her on early this week. We will continue current management here and plan on discharge on Wednesday back home depending on her progress. Time spent today is 30 minutes with greater than 50% in counseling and coordination of care most of which in discussion with patient regarding care plan and progress. Problems: (1) History of stroke (2) Type 2 diabetes mellitus (3) Hypertension (4) COVID VITAL SIGNS Vital Signs/I&O: Vital Signs Date Time Temp Pulse Resp B/P (MAP) Pulse Ox O2 Delivery O2 Flow Rate FiO2 05/17/21 15:00 97.8 85 16 156/72 (100) 96 Room Air 97.8 I & O 05/16/21 05/16/21 05/17/21 15:00 23:00 07:00 Intake Total 120 ml 480 ml 120 ml Balance 120 ml 480 ml 120 ml In general patient is pleasant at baseline orientation in no acute distress resting comfortably in bed HEENT exam is unremarkable for acute abnormality Neck is soft and supple no adenopathy or thyromegaly noted Chest bilateral equal air entry though diminished throughout no crackles or wheezes are noted Heart S1-S2 normal regular rate and rhythm no murmurs or gallops are noted Abdomen soft nontender nondistended no masses organomegaly noted Extremity exam is unremarkable for acute abnormality ALLERGIES Allergies: Allergies Coded Allergies Type Severity Reaction Last Updated Verified Sulfa (Sulfonamide Antibiotics) Allergy Severe Shortness of Air 07/12/15 Yes pantoprazole Allergy Intermediate 07/12/15 Yes erythromycin base Adverse Reaction Intermediate Nausea and Vomiting 05/15/21 Yes MEDS Medications: Current Medications Medications (Trade) Dose Ordered Sig/Loulou Start Time Stop Time Status Last Admin Dose Admin Acetaminophen (Tylenol) 650 mg PRN Q4HRS PRN 05/14/21 14:30 05/16/21 21:16 Ascorbic Acid (Vitamin C) 3,000 mg TID 05/14/21 15:00 05/17/21 08:56 Aspirin (Aspirin Chewable) 81 mg DAILYWBKFT 05/15/21 11:00 05/17/21 08:56 Atorvastatin Calcium (Lipitor) 40 mg QHS 05/15/21 21:00 05/16/21 21:15 Azithromycin 250 ml @ 250 mls/hr 1X ONCE 05/14/21 17:00 05/14/21 17:59 DC 05/14/21 19:00 Ceftriaxone Sodium (Rocephin) 1 gm Q24H 05/15/21 11:00 05/17/21 12:13 Clopidogrel Bisulfate (Plavix) 75 mg DAILYWBKFT 05/16/21 08:00 05/17/21 08:56 Dexamethasone Sodium Phosphate (Decadron) 10 mg 1X ONCE 05/14/21 10:00 05/14/21 10:01 DC 05/14/21 10:05 Dextrose (Dextrose 50%-Water Syringe) 12.5 gm PRN Q15MIN PRN 05/14/21 14:30 Diphenhydramine HCl (Benadryl) 25 mg PRN QHS PRN 05/14/21 14:30 05/16/21 21:15 Docusate Sodium (Colace) 100 mg PRN DAILY PRN 05/14/21 14:30 05/14/21 21:32 Doxycycline Hyclate 100 mg/ Dextrose 100 ml @ 50 mls/hr Q12HR 05/15/21 11:00 05/17/21 09:00 Guaifenesin/ Codeine Phosphate (Robitussin Ac) 5 ml PRN Q6HRS PRN 05/15/21 10:45 Heparin Sodium (Porcine) (Heparin Sodium) 5,000 unit Q12HR 05/14/21 21:00 05/17/21 08:57 Insulin Glargine (Lantus Syringe) 60 unit QHS 05/15/21 21:00 05/16/21 20:48 Insulin Human Lispro (HumaLOG) 20 units TIDWMEALS 05/15/21 17:00 05/17/21 12:15 Lactobacillus Rhamnosus (Culturelle) 1 cap BID 05/16/21 21:00 05/17/21 08:55 Lorazepam (Ativan Inj) 0.25 mg PRN Q4HRS PRN 05/14/21 14:30 Lorazepam (Ativan) 0.5 mg PRN Q6HRS PRN 05/14/21 14:30 05/16/21 21:15 Magnesium Sulfate 50 ml @ 25 mls/hr 1X ONCE 05/14/21 14:45 05/14/21 16:44 DC 05/14/21 17:35 Methylprednisolone Sodium Succinate (SOLU-Medrol 40MG VIAL) 40 mg BID 05/15/21 11:00 05/17/21 08:56 Ondansetron HCl (Zofran) 4 mg PRN Q6HRS PRN 05/14/21 14:30 05/14/21 17:15 Prochlorperazine Edisylate (Compazine) 10 mg PRN Q6HRS PRN 05/14/21 14:30 Sennosides (Senna) 17.2 mg PRN BID PRN 05/14/21 14:30 Sodium Chloride 1,000 ml @ 75 mls/hr [id number] 05/14/21 15:00 05/15/21 14:59 DC 05/14/21 19:00 Thiamine Mononitrate (Vitamin B-1) 300 mg DAILY 05/14/21 15:00 05/17/21 08:55 Zinc Sulfate (Orazinc) 220 mg DAILY 05/14/21 15:00 05/17/21 08:55 Zolpidem Tartrate (Ambien) 2.5 mg PRN QHS PRN 05/14/21 14:30 Current Medications Medications (Trade) Dose Ordered Sig/Loulou Route PRN Reason Start Time Stop Time Status Last Admin Dose Admin Lactobacillus Rhamnosus (Culturelle) 1 cap BID PO 05/16/21 21:00 05/17/21 08:55 LAB Lab: Laboratory Tests Test 05/16/21 19:34 05/17/21 06:10 05/17/21 08:35 05/17/21 11:16 Glucose (Fingerstick) 149 mg/dL (70-99) H 185 mg/dL (70-99) H 185 mg/dL (70-99) H White Blood Count 11.6 x10^3/uL (4.0-11.0) H Red Blood Count 4.47 x10^6/uL (3.50-5.40) Hemoglobin 12.2 g/dL (12.0-15.5) Hematocrit 37.1 % (36.0-47.0) Mean Corpuscular Volume 83 fL (79-100) Mean Corpuscular Hemoglobin 27 pg (25-35) Mean Corpuscular Hemoglobin Concent 33 g/dL (31-37) Red Cell Distribution Width 14.3 % (11.5-14.5) Platelet Count 194 x10^3/uL (140-400) Neutrophils (%) (Auto) 88 % (31-73) H Lymphocytes (%) (Auto) 6 % (24-48) L Monocytes (%) (Auto) 5 % (0-9) Eosinophils (%) (Auto) 0 % (0-3) Basophils (%) (Auto) 1 % (0-3) Neutrophils # (Auto) 10.2 x10^3/uL (1.8-7.7) H Lymphocytes # (Auto) 0.7 x10^3/uL (1.0-4.8) L Monocytes # (Auto) 0.6 x10^3/uL (0.0-1.1) Eosinophils # (Auto) 0.0 x10^3/uL (0.0-0.7) Basophils # (Auto) 0.1 x10^3/uL (0.0-0.2) Sodium Level 144 mmol/L (136-145) Potassium Level 3.9 mmol/L (3.5-5.1) Chloride Level 112 mmol/L (98-107) H Carbon Dioxide Level 22 mmol/L (21-32) Anion Gap 10 (6-14) Blood Urea Nitrogen 26 mg/dL (7-20) H Creatinine 1.1 mg/dL (0.6-1.0) H Estimated GFR (Cockcroft-Gault) 60.7 Glucose Level 159 mg/dL (70-99) H Calcium Level 8.2 mg/dL (8.5-10.1) L Magnesium Level 1.9 mg/dL (1.8-2.4) Laboratory Tests 05/17/21 06:10 Laboratory Tests 05/17/21 06:10 ASSESSMENT & PLAN A&P Plan as noted above This note was created using [employer] and may have omissions and/or errors due to the nature of real-time voice drapery operator. Justifications for Admission Other Justification Intractable nausea vomiting and COVID-19 infection LILLIAN ALLAN MD May 17, 2021 16:39
[2021-05-17] MEDS: LISINOPRIL 10 MG TABLET PO SCH (17:17)
[2021-05-17 19:00] VITALS: BP 166/78
[2021-05-17] MEDS: LORazepam 0.5 MG TABLET PO PRN (20:53)
[2021-05-17] MEDS: ACETAMINOPHEN 325 MG TABLET. PO PRN (20:53)
[2021-05-17] MEDS: ATORVASTATIN CALCIUM 40 MG TABLET. PO SCH (20:53)
[2021-05-17] MEDS: diphenhydrAMINE HCL 25 MG CAPSULE PO PRN (20:54)
[2021-05-17] MEDS: INSULIN GLARGINE SYRINGE. SQ SCH (20:58)
[2021-05-17 23:02] VITALS: BP 165/75
[2021-05-18] VITALS (7 sets, daily range): BP systolic 157–186; BP diastolic 70–89
[2021-05-18 05:11] LABS: BASO % 0 % (0-3); EOS % 0 % (0-3); HEMATOCRIT 38.4 % (36.0-47.0); HEMOGLOBIN 12.6 g/dL (12.0-15.5); LYMPH # 0.7 x10^3/uL (1.0-4.8); LYMPH % 6 % (24-48); MEAN CORPUSCULAR HEMOGLOBIN 27 pg (25-35); MEAN CORPUSCULAR HGB CONC 33 g/dL (31-37); MEAN CORPUSCULAR VOLUME 83 fL (79-100); MONO # 0.7 x10^3/uL (0.0-1.1); MONO % 6 % (0-9); NEUT # 9.9 x10^3/uL (1.8-7.7); NEUT % 88 % (31-73); PLATELET COUNT 207 x10^3/uL (140-400); RED BLOOD COUNT 4.65 x10^6/uL (3.50-5.40); RED CELL DISTRIBUTION WIDTH 14.2 % (11.5-14.5); WHITE BLOOD COUNT 11.3 x10^3/uL (4.0-11.0)
[2021-05-18 05:39] LABS: ALBUMIN 1.8 g/dL (3.4-5.0); ALBUMIN/GLOBULIN RATIO 0.5 (1.0-1.7); CALCIUM 8.1 mg/dL (8.5-10.1); GFR 67.8; POTASSIUM 3.9 mmol/L (3.5-5.1); TOTAL BILIRUBIN 0.2 mg/dL (0.2-1.0); TOTAL PROTEIN 5.5 g/dL (6.4-8.2)
[2021-05-18] MEDS: INSULIN LISPRO 300 UNITS/3 ML VIAL. SQ SCH ×6 (08:00→18:23)
[2021-05-18] MEDS: ZINC SULFATE 220 MG CAPSULE. PO SCH (08:48)
[2021-05-18] MEDS: CLOPIDOGREL BISULFATE 75 MG TABLET PO SCH (08:48)
[2021-05-18] MEDS: THIAMINE 100 MG TABLET. PO SCH (08:48)
[2021-05-18] MEDS: ASCORBIC ACID 1,000 MG TABLET PO SCH ×4 (08:48→20:35)
[2021-05-18] MEDS: ASPIRIN CHEWABLE 81 MG TABLET. PO SCH (08:48)
[2021-05-18] MEDS: LACTOBACILLUS RHAMNOSUS GG 1 CAPSULE. PO SCH ×2 (08:48→20:35)
[2021-05-18] MEDS: methylPREDNISolone SOD SUCC PF 40 MG/ML VIAL. IV SCH (08:48)
[2021-05-18] MEDS: LISINOPRIL 10 MG TABLET PO SCH (08:49)
[2021-05-18] MEDS: DOXYCYCLINE HYCLATE 100 MG in IV DEXTROSE 5% 100ML 100 ML IV SCH ×2 (08:50→20:40)
[2021-05-18] MEDS: IV NORMAL SALINE 1000ML BAG 1,000 ML IV SCH ×2 (08:52→18:16)
[2021-05-18] MEDS: HEPARIN for SUB-Q USE 5,000 UNIT/ML VIAL. SQ SCH ×2 (08:53→20:38)
[2021-05-18] MEDS: cefTRIAXone IV Push 1 GM VIAL. IVP SCH (12:27)
--- NOTE | 2021-05-18 16:44 | PDOC ---
GENERAL General: Patient examined chart reviewed no events overnight noted. Patient is in good spirits today no new complaints. Sugars are high with the steroids we will increase her evening glargine and decrease her steroid dosage to once daily. Continue current management otherwise. Problems: (1) Type 2 diabetes mellitus (2) Hypertension (3) History of stroke (4) COVID VITAL SIGNS Vital Signs/I&O: Vital Signs Date Time Temp Pulse Resp B/P (MAP) Pulse Ox O2 Delivery O2 Flow Rate FiO2 05/18/21 11:59 97.8 80 24 184/89 (120) 97 Room Air 97.8 I & O 05/17/21 05/17/21 05/18/21 15:00 23:00 07:00 Intake Total 240 ml 120 ml Output Total 0 ml Balance 240 ml 120 ml In general the patient is pleasant at baseline orientation in no acute distress HEENT exam is unremarkable Chest is clear to auscultation Heart S1-S2 normal regular rate and rhythm no murmurs or gallops are noted Abdomen soft nontender nondistended no masses organomegaly noted Extremity exam is unremarkable for acute abnormality ALLERGIES Allergies: Allergies Coded Allergies Type Severity Reaction Last Updated Verified Sulfa (Sulfonamide Antibiotics) Allergy Severe Shortness of Air 07/12/15 Yes pantoprazole Allergy Intermediate 07/12/15 Yes erythromycin base Adverse Reaction Intermediate Nausea and Vomiting 05/15/21 Yes MEDS Medications: Current Medications Medications (Trade) Dose Ordered Sig/Loulou Start Time Stop Time Status Last Admin Dose Admin Acetaminophen (Tylenol) 650 mg PRN Q4HRS PRN 05/14/21 14:30 05/17/21 20:53 Ascorbic Acid (Vitamin C) 3,000 mg TID 05/14/21 15:00 05/17/21 20:53 Aspirin (Aspirin Chewable) 81 mg DAILYWBKFT 05/15/21 11:00 05/18/21 08:48 Atorvastatin Calcium (Lipitor) 40 mg QHS 05/15/21 21:00 05/17/21 20:53 Azithromycin 250 ml @ 250 mls/hr 1X ONCE 05/14/21 17:00 05/14/21 17:59 DC 05/14/21 19:00 Ceftriaxone Sodium (Rocephin) 1 gm Q24H 05/15/21 11:00 05/18/21 12:27 Clopidogrel Bisulfate (Plavix) 75 mg DAILYWBKFT 05/16/21 08:00 05/18/21 08:48 Dexamethasone Sodium Phosphate (Decadron) 10 mg 1X ONCE 05/14/21 10:00 05/14/21 10:01 DC 05/14/21 10:05 Dextrose (Dextrose 50%-Water Syringe) 12.5 gm PRN Q15MIN PRN 05/14/21 14:30 Diphenhydramine HCl (Benadryl) 25 mg PRN QHS PRN 05/14/21 14:30 05/17/21 20:54 Docusate Sodium (Colace) 100 mg PRN DAILY PRN 05/14/21 14:30 05/14/21 21:32 Doxycycline Hyclate 100 mg/ Dextrose 100 ml @ 50 mls/hr Q12HR 05/15/21 11:00 05/18/21 08:50 Guaifenesin/ Codeine Phosphate (Robitussin Ac) 5 ml PRN Q6HRS PRN 05/15/21 10:45 Heparin Sodium (Porcine) (Heparin Sodium) 5,000 unit Q12HR 05/14/21 21:00 05/18/21 08:53 Insulin Glargine (Lantus Syringe) 60 unit QHS 05/15/21 21:00 05/17/21 20:58 Insulin Human Lispro (HumaLOG) 20 units TIDWMEALS 05/15/21 17:00 05/18/21 12:48 Lactobacillus Rhamnosus (Culturelle) 1 cap BID 05/16/21 21:00 05/18/21 08:48 Lisinopril (Prinivil) 10 mg DAILY 05/17/21 17:00 05/18/21 08:49 Lorazepam (Ativan Inj) 0.25 mg PRN Q4HRS PRN 05/14/21 14:30 Lorazepam (Ativan) 0.5 mg PRN Q6HRS PRN 05/14/21 14:30 05/17/21 20:53 Magnesium Sulfate 50 ml @ 25 mls/hr 1X ONCE 05/14/21 14:45 05/14/21 16:44 DC 05/14/21 17:35 Methylprednisolone Sodium Succinate (SOLU-Medrol 40MG VIAL) 40 mg BID 05/15/21 11:00 05/18/21 08:48 Ondansetron HCl (Zofran) 4 mg PRN Q6HRS PRN 05/14/21 14:30 05/14/21 17:15 Prochlorperazine Edisylate (Compazine) 10 mg PRN Q6HRS PRN 05/14/21 14:30 Sennosides (Senna) 17.2 mg PRN BID PRN 05/14/21 14:30 Sodium Chloride 1,000 ml @ 75 mls/hr [id number] 05/14/21 15:00 05/15/21 14:59 DC 05/14/21 19:00 Thiamine Mononitrate (Vitamin B-1) 300 mg DAILY 05/14/21 15:00 05/18/21 08:48 Zinc Sulfate (Orazinc) 220 mg DAILY 05/14/21 15:00 05/18/21 08:48 Zolpidem Tartrate (Ambien) 2.5 mg PRN QHS PRN 05/14/21 14:30 Current Medications Medications (Trade) Dose Ordered Sig/Loulou Route PRN Reason Start Time Stop Time Status Last Admin Dose Admin Lisinopril (Prinivil) 10 mg DAILY PO 05/17/21 17:00 05/18/21 08:49 LAB Lab: Laboratory Tests Test 05/17/21 20:46 05/18/21 04:30 05/18/21 12:15 Glucose (Fingerstick) 204 mg/dL (70-99) H 242 mg/dL (70-99) H White Blood Count 11.3 x10^3/uL (4.0-11.0) H Red Blood Count 4.65 x10^6/uL (3.50-5.40) Hemoglobin 12.6 g/dL (12.0-15.5) Hematocrit 38.4 % (36.0-47.0) Mean Corpuscular Volume 83 fL (79-100) Mean Corpuscular Hemoglobin 27 pg (25-35) Mean Corpuscular Hemoglobin Concent 33 g/dL (31-37) Red Cell Distribution Width 14.2 % (11.5-14.5) Platelet Count 207 x10^3/uL (140-400) Neutrophils (%) (Auto) 88 % (31-73) H Lymphocytes (%) (Auto) 6 % (24-48) L Monocytes (%) (Auto) 6 % (0-9) Eosinophils (%) (Auto) 0 % (0-3) Basophils (%) (Auto) 0 % (0-3) Neutrophils # (Auto) 9.9 x10^3/uL (1.8-7.7) H Lymphocytes # (Auto) 0.7 x10^3/uL (1.0-4.8) L Monocytes # (Auto) 0.7 x10^3/uL (0.0-1.1) Eosinophils # (Auto) 0.0 x10^3/uL (0.0-0.7) Basophils # (Auto) 0.0 x10^3/uL (0.0-0.2) Sodium Level 142 mmol/L (136-145) Potassium Level 3.9 mmol/L (3.5-5.1) Chloride Level 110 mmol/L (98-107) H Carbon Dioxide Level 21 mmol/L (21-32) Anion Gap 11 (6-14) Blood Urea Nitrogen 25 mg/dL (7-20) H Creatinine 1.0 mg/dL (0.6-1.0) Estimated GFR (Cockcroft-Gault) 67.8 BUN/Creatinine Ratio 25 (6-20) H Glucose Level 217 mg/dL (70-99) H Calcium Level 8.1 mg/dL (8.5-10.1) L Total Bilirubin 0.2 mg/dL (0.2-1.0) Aspartate Amino Transferase (AST) 19 U/L (15-37) Alanine Aminotransferase (ALT) 18 U/L (14-59) Alkaline Phosphatase 80 U/L (46-116) Total Protein 5.5 g/dL (6.4-8.2) L Albumin 1.8 g/dL (3.4-5.0) L Albumin/Globulin Ratio 0.5 (1.0-1.7) L Laboratory Tests 05/18/21 04:30 Laboratory Tests 05/18/21 04:30 ASSESSMENT & PLAN A&P Plan as noted above This note was created using [employer] and may have omissions and/or errors due to the nature of real-time voice account associate. Justifications for Admission Other Justification Intractable nausea vomiting and COVID-19 infection LILLIAN ALLAN MD May 18, 2021 16:44
[2021-05-18] MEDS: diphenhydrAMINE HCL 25 MG CAPSULE PO PRN (20:35)
[2021-05-18] MEDS: ATORVASTATIN CALCIUM 40 MG TABLET. PO SCH (20:35)
[2021-05-18] MEDS: LORazepam 0.5 MG TABLET PO PRN (20:35)
[2021-05-18] MEDS: ACETAMINOPHEN 325 MG TABLET. PO PRN (20:36)
[2021-05-18] MEDS ORDERED: INSULIN GLARGINE SYRINGE. SQ SCH (21:00)
[2021-05-19 03:00] VITALS: BP 179/86
[2021-05-19] MEDS: IV NORMAL SALINE 1000ML BAG 1,000 ML IV SCH (04:45)
[2021-05-19 07:00] VITALS: BP 129/95
[2021-05-19] MEDS: INSULIN LISPRO 300 UNITS/3 ML VIAL. SQ SCH ×7 (08:00→17:20)
[2021-05-19] MEDS: DEXTROSE 50% 25 GM / 50ML DISP.SYRIN. IV PRN (08:01)
[2021-05-19] MEDS: ASPIRIN CHEWABLE 81 MG TABLET. PO SCH (09:09)
[2021-05-19] MEDS: LACTOBACILLUS RHAMNOSUS GG 1 CAPSULE. PO SCH ×2 (09:10→20:06)
[2021-05-19] MEDS: LISINOPRIL 10 MG TABLET PO SCH (09:10)
[2021-05-19] MEDS: ASCORBIC ACID 1,000 MG TABLET PO SCH ×3 (09:10→20:07)
[2021-05-19] MEDS: ZINC SULFATE 220 MG CAPSULE. PO SCH (09:10)
[2021-05-19] MEDS: THIAMINE 100 MG TABLET. PO SCH (09:10)
[2021-05-19] MEDS: methylPREDNISolone SOD SUCC PF 40 MG/ML VIAL. IV SCH (09:10)
[2021-05-19] MEDS: CLOPIDOGREL BISULFATE 75 MG TABLET PO SCH (09:10)
[2021-05-19] MEDS: DOXYCYCLINE HYCLATE 100 MG in IV DEXTROSE 5% 100ML 100 ML IV SCH (09:11)
[2021-05-19] MEDS: HEPARIN for SUB-Q USE 5,000 UNIT/ML VIAL. SQ SCH ×2 (09:12→20:15)
[2021-05-19] MEDS ORDERED: AMOX1TAB61 PO (10:35)
[2021-05-19] MEDS ORDERED: PRED20TA PO (10:35)
--- NOTE | 2021-05-19 10:36 | SNU/HH DC ---
DISCHARGE WITH HOME HEALTH DISCHARGE INFORMATION: Discharge Date: May 19, 2021 Final Diagnosis: Problems Medical Problems: (1) COVID Status: Acute (2) Pneumonia Status: Acute (3) Weakness Status: Acute Condition on Discharge: Stable CODE STATUS: Code Status: Full HOME HEALTH: Face to Face: I certify this patient is under my care and that I, or a nurse practitioner or physician's product development assistant working with me, had a face to face encounter that meets the physician face to face encounter requirements with this patient on []. RN For Eval/Treatment: Yes Physical Therapy For: Evalulation/Treatment Occupational Therapy For: Evaluation/Treatment Pt Meets Homebound Status: Extreme weakness w/ amb., Fatigue w/ amb. POST DISCHARGE ORDERS: Activity Instructions for Disc: Activity as tolerated Weight Bearing Status after Di: As tolerated DIET AFTER DISCHARGE: Regular Wound/Incision Care: Ice to area for comfort CHECKS AFTER DISCHARGE: Checks after discharge: Check blood press - daily, Check your Temp as needed TREATMENT/EQUIPMENT ORDERS: Adaptive Equipment Issued: Walker CERTIFICATION STATEMENT: Certification Statement: Certification Statement: Based on the above finding, I certify that this patient is confined to the home and needs intermittent residential care, physical therapy and/or speech therapy, or continues to need occupational therapy.~ This patient is under my care, and I have initiated the establishment of the plan of care.~ This patient will be followed by myself or a community physician who will periodically review the plan of care. Home Meds Active Scripts Amoxicillin/Potassium Clav (AUGMENTIN 875-125 TABLET) 1 Each Tablet, 1 TAB PO B ID for pneumonia for 5 Days, #10 TAB 0 Refills Prov:ISMAEL DUARTE MD 05/19/21 Prednisone (PREDNISONE) 20 Mg Tablet, 2 TAB PO DAILY for covid for 5 Days, #10 TAB Prov:ISMAEL DUARTE MD 05/19/21 Reported Medications Atorvastatin Calcium (ATORVASTATIN CALCIUM) 40 Mg Tablet, 40 MG PO HS for FOR CHOLESTEROL, #30 TAB 0 Refills 05/15/21 Lisinopril (LISINOPRIL) 20 Mg Tablet, 20 MG PO DAILY for FOR HYPERTENSION, #30 TAB 0 Refills 05/15/21 Insulin Lispro (HUMALOG) 100 Unit/1 Ml Vial, 20 UNIT SQ TIDWMEALS, EACH 05/15/21 Insulin Detemir (LEVEMIR) 100 Unit/1 Ml Vial, 60 UNIT SQ QHS, VIAL 07/12/15 Aspirin (ASPIR 81) 81 Mg Tablet.dr, 1 TAB PO DAILY, #90 TAB 1 Refill 07/12/15 Clopidogrel Bisulfate (CLOPIDOGREL) 75 Mg Tablet, 1 TAB PO DAILY, #30 TAB 5 Refills 07/12/15 Discontinued Reported Medications Insulin Aspart (NOVOLOG) 100 Unit/1 Ml Cartridge, 10 UNIT SQ TIDWMEALS, EACH 07/12/15 ISMAEL DUARTE MD May 19, 2021 10:36
--- NOTE | 2021-05-19 10:41 | NUR ---
JUAN following. Discussed with RN, discharge order for home with home health. [facility] RN notified of discharge. Addendum: 05/19/21 at 1043 by COLIN MARTINEZ Pt is a high risk readmission due to declining SNF. Addendum: 05/19/21 at 1241 by COLIN MARTINEZ JUAN received call from RN stating pt's daughter requesting a phone call from JUAN. JUAN spoke with pt's daughter, she does not feel like pt is safe to go home and needs to go to a rehab first. JUAN explained the limited options for COVID positive pts. Dtr requested SW try [facility] and have [facility] contact her to discuss home health and whether insurance is covered etc. Referral phoned and faxed to [facility], awaiting acceptance decision.
[2021-05-19 11:00] VITALS: BP 147/108
[2021-05-19] MEDS: cefTRIAXone IV Push 1 GM VIAL. IVP SCH (11:22)
[2021-05-19 15:00] VITALS: BP 150/111
--- NOTE | 2021-05-19 17:58 | PDOC ---
[employer] PROGRESS NOTE Date of Service DOS: DATE: 05/19/21 TIME: 17:56 Chief Complaint Chief Complaint 1. COVID Pneumonia 2. Nausea/Vomiting 3. History of: CVA, COPD/bronchitis, HTN, type 2 diabetes, TIA History of Present Illness History of Present Illness Patient seen and examined Chart reviewed Discussed with RN Patient currently on room air and resting comfortably [place] completed swallow study, appreciated recommendations Discussed with patient possible discharge to rehab, patient previously living at [facility]. 05/19 Patient evaluated examined at bedside. Looks comfortable. Family contacted hospital they do not feel like she is ready for discharge. Would like her to go to rehab. Difficulties of rehab placement explained to them by social work. Will speak with them myself if still resistant to d/c. planning for discharge tomorrow. Vitals/I&O Vitals/I&O: Vital Signs Date Time Temp Pulse Resp B/P (MAP) Pulse Ox O2 Delivery O2 Flow Rate FiO2 05/19/21 15:00 92.7 90 20 150/111 (124) 96 Room Air 92.7 I & O 05/18/21 05/18/21 05/19/21 15:00 23:00 07:00 Intake Total 100 ml Balance 100 ml Physical Exam General: Alert Heart: Regular rate Lungs: Clear Abdomen: Normal bowel sounds Extremities: No clubbing, No cyanosis Skin: No rashes, No breakdown Labs Labs: Laboratory Tests Test 05/18/21 18:06 05/18/21 20:27 05/19/21 07:49 05/19/21 08:31 Glucose (Fingerstick) 275 mg/dL (70-99) 293 mg/dL (70-99) 41 mg/dL (70-99) 120 mg/dL (70-99) Test 05/19/21 11:26 05/19/21 16:52 Glucose (Fingerstick) 95 mg/dL (70-99) 160 mg/dL (70-99) Assessment and Plan Assessmemt and Plan Problems Medical Problems: (1) COVID Status: Acute (2) Pneumonia Status: Acute (3) Weakness Status: Acute Comment Review of Relevant I have reviewed the following items randi (where applicable) has been applied. Medications: Current Medications Medications (Trade) Dose Ordered Sig/Loulou Route PRN Reason Start Time Stop Time Status Last Admin Dose Admin Methylprednisolone Sodium Succinate (SOLU-Medrol 40MG VIAL) 40 mg DAILY IV 05/19/21 09:00 05/19/21 09:10 Insulin Glargine (Lantus Syringe) 70 unit QHS SQ 05/18/21 21:00 05/19/21 11:50 DC 05/18/21 20:38 Justifications for Admission Other Justification Intractable nausea vomiting and COVID-19 infection ISMAEL DUARTE MD May 19, 2021 17:58
[2021-05-19 19:00] VITALS: BP 169/89
[2021-05-19] MEDS: LORazepam 0.5 MG TABLET PO PRN (20:06)
[2021-05-19] MEDS: CEFDINIR 300 MG CAPSULE PO SCH (20:06)
[2021-05-19] MEDS: ACETAMINOPHEN 325 MG TABLET. PO PRN (20:07)
[2021-05-19] MEDS: diphenhydrAMINE HCL 25 MG CAPSULE PO PRN (20:07)
[2021-05-19] MEDS: DOXYCYCLINE HYCLATE 100 MG TABLET PO SCH (20:07)
[2021-05-19] MEDS: ATORVASTATIN CALCIUM 40 MG TABLET. PO SCH (20:07)
[2021-05-19] MEDS: INSULIN GLARGINE SYRINGE. SQ SCH (20:15)
[2021-05-19 23:00] VITALS: BP 159/76
[2021-05-20 03:59] VITALS: BP 179/89
[2021-05-20 07:00] VITALS: BP 148/77
[2021-05-20] MEDS: INSULIN LISPRO 300 UNITS/3 ML VIAL. SQ SCH ×6 (08:00→18:00)
[2021-05-20] MEDS: ASCORBIC ACID 1,000 MG TABLET PO SCH ×3 (09:00→20:22)
[2021-05-20] MEDS: methylPREDNISolone SOD SUCC PF 40 MG/ML VIAL. IV SCH (09:43)
[2021-05-20] MEDS: ZINC SULFATE 220 MG CAPSULE. PO SCH (09:43)
[2021-05-20] MEDS: CEFDINIR 300 MG CAPSULE PO SCH ×2 (09:43→20:22)
[2021-05-20] MEDS: THIAMINE 100 MG TABLET. PO SCH (09:43)
[2021-05-20] MEDS: LACTOBACILLUS RHAMNOSUS GG 1 CAPSULE. PO SCH ×2 (09:43→20:23)
[2021-05-20] MEDS: DOXYCYCLINE HYCLATE 100 MG TABLET PO SCH ×2 (09:43→20:23)
[2021-05-20] MEDS: CLOPIDOGREL BISULFATE 75 MG TABLET PO SCH (09:43)
[2021-05-20] MEDS: LISINOPRIL 10 MG TABLET PO SCH (09:44)
[2021-05-20] MEDS: ASPIRIN CHEWABLE 81 MG TABLET. PO SCH (09:44)
[2021-05-20] MEDS: HEPARIN for SUB-Q USE 5,000 UNIT/ML VIAL. SQ SCH ×2 (09:45→20:27)
--- NOTE | 2021-05-20 10:30 | NUR ---
SW following. Discussed with RN, pt accepted at [facility] pending insurance auth. If insurance denies pt will discharge home with [facility]. JUAN will continue to follow.
[2021-05-20 14:50] VITALS: BP 154/78
[2021-05-20 19:00] VITALS: BP 166/80
[2021-05-20] MEDS: LORazepam 0.5 MG TABLET PO PRN (20:22)
[2021-05-20] MEDS: ATORVASTATIN CALCIUM 40 MG TABLET. PO SCH (20:22)
[2021-05-20] MEDS: ACETAMINOPHEN 325 MG TABLET. PO PRN (20:23)
[2021-05-20] MEDS: diphenhydrAMINE HCL 25 MG CAPSULE PO PRN (20:29)
[2021-05-20] MEDS: INSULIN GLARGINE SYRINGE. SQ SCH (21:19)
[2021-05-20 23:00] VITALS: BP 136/71
[2021-05-21 03:00] VITALS: BP 171/72
[2021-05-21 07:44] VITALS: BP 148/73
[2021-05-21] MEDS: INSULIN LISPRO 300 UNITS/3 ML VIAL. SQ SCH ×6 (08:00→17:34)
[2021-05-21] MEDS ORDERED: DEXTROSE ORAL GEL 15 GM TUBE. ONE (08:06)
[2021-05-21] MEDS: ZINC SULFATE 220 MG CAPSULE. PO SCH (08:26)
[2021-05-21] MEDS: ASPIRIN CHEWABLE 81 MG TABLET. PO SCH (08:26)
[2021-05-21] MEDS: CLOPIDOGREL BISULFATE 75 MG TABLET PO SCH (08:26)
[2021-05-21] MEDS: THIAMINE 100 MG TABLET. PO SCH (08:26)
[2021-05-21] MEDS: CEFDINIR 300 MG CAPSULE PO SCH ×2 (08:26→19:48)
[2021-05-21] MEDS: LACTOBACILLUS RHAMNOSUS GG 1 CAPSULE. PO SCH ×2 (08:26→19:48)
[2021-05-21] MEDS: HEPARIN for SUB-Q USE 5,000 UNIT/ML VIAL. SQ SCH ×2 (08:27→19:50)
[2021-05-21] MEDS: DOXYCYCLINE HYCLATE 100 MG TABLET PO SCH ×2 (08:27→19:48)
[2021-05-21] MEDS: LISINOPRIL 10 MG TABLET PO SCH (08:27)
[2021-05-21] MEDS: ASCORBIC ACID 1,000 MG TABLET PO SCH ×2 (08:28→13:57)
[2021-05-21] MEDS ORDERED: DEXTROSE ORAL GEL 15 GM TUBE. PO ONE (08:30)
[2021-05-21] MEDS: methylPREDNISolone SOD SUCC PF 40 MG/ML VIAL. IV SCH (08:49)
[2021-05-21 12:03] VITALS: BP 142/64
--- NOTE | 2021-05-21 12:52 | PDOC ---
[employer] PROGRESS NOTE Date of Service DOS: Late entry May 20 Chief Complaint Chief Complaint 1. COVID Pneumonia 2. Nausea/Vomiting 3. 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 05/19 Patient evaluated examined at bedside. Looks comfortable. Family contacted hospital they do not feel like she is ready for discharge. Would like her to go to rehab. Difficulties of rehab placement explained to them by social work. 05/20 Patient evaluated him at bedside. Awaiting insurance authorization for discharge to [facility] Vitals/I&O Vitals/I&O: Vital Signs Date Time Temp Pulse Resp B/P (MAP) Pulse Ox O2 Delivery O2 Flow Rate FiO2 05/21/21 12:03 97.4 93 22 142/64 (90) 96 Room Air 97.4 I & O 05/20/21 05/20/21 05/21/21 15:00 23:00 07:00 Intake Total 300 ml 660 ml 240 ml Balance 300 ml 660 ml 240 ml Physical Exam General: Alert Heart: Regular rate Lungs: Clear Abdomen: Normal bowel sounds Extremities: No clubbing, No cyanosis Skin: No rashes, No breakdown Labs Labs: Laboratory Tests Test 05/20/21 16:15 05/20/21 19:38 05/21/21 08:03 05/21/21 08:25 Glucose (Fingerstick) 251 mg/dL (70-99) 282 mg/dL (70-99) 47 mg/dL (70-99) 68 mg/dL (70-99) Test 05/21/21 08:54 Glucose (Fingerstick) 91 mg/dL (70-99) Assessment and Plan Assessmemt and Plan Problems Medical Problems: (1) COVID Status: Acute (2) Pneumonia Status: Acute (3) Weakness Status: Acute Comment Review of Relevant I have reviewed the following items randi (where applicable) has been applied. Medications: Current Medications Medications (Trade) Dose Ordered Sig/Loulou Route PRN Reason Start Time Stop Time Status Last Admin Dose Admin Glucose (Insta-Glucose) 15 gm 1X ONCE PO 05/21/21 08:30 05/21/21 08:31 DC 05/21/21 08:14 Justifications for Admission Other Justification Intractable nausea vomiting and COVID-19 infection ISMAEL DUARTE MD May 21, 2021 12:52
[2021-05-21 15:14] VITALS: BP 145/71
[2021-05-21 19:00] VITALS: BP 173/77
[2021-05-21] MEDS: LORazepam 0.5 MG TABLET PO PRN (19:48)
[2021-05-21] MEDS: diphenhydrAMINE HCL 25 MG CAPSULE PO PRN (19:48)
[2021-05-21] MEDS: DOCUSATE SODIUM 100 MG CAPSULE. PO PRN (19:48)
[2021-05-21] MEDS: ATORVASTATIN CALCIUM 40 MG TABLET. PO SCH (19:48)
[2021-05-21] MEDS: ACETAMINOPHEN 325 MG TABLET. PO PRN (19:49)
[2021-05-21] MEDS ORDERED: INSULIN GLARGINE SYRINGE. SQ SCH (21:00)
[2021-05-21 23:00] VITALS: BP 158/72
[2021-05-22 03:00] VITALS: BP 185/79
[2021-05-22 07:00] VITALS: BP 141/72
[2021-05-22] MEDS: INSULIN LISPRO 300 UNITS/3 ML VIAL. SQ SCH ×6 (08:00→17:59)
[2021-05-22] MEDS: THIAMINE 100 MG TABLET. PO SCH (08:58)
[2021-05-22] MEDS: CLOPIDOGREL BISULFATE 75 MG TABLET PO SCH (09:01)
[2021-05-22] MEDS: ZINC SULFATE 220 MG CAPSULE. PO SCH (09:01)
[2021-05-22] MEDS: DOXYCYCLINE HYCLATE 100 MG TABLET PO SCH (09:01)
[2021-05-22] MEDS: CEFDINIR 300 MG CAPSULE PO SCH (09:01)
[2021-05-22] MEDS: HEPARIN for SUB-Q USE 5,000 UNIT/ML VIAL. SQ SCH (09:24)
[2021-05-22] MEDS: LACTOBACILLUS RHAMNOSUS GG 1 CAPSULE. PO SCH (09:24)
[2021-05-22] MEDS: methylPREDNISolone SOD SUCC PF 40 MG/ML VIAL. IV SCH (09:24)
[2021-05-22] MEDS: LORazepam 0.5 MG TABLET PO PRN (09:24)
[2021-05-22] MEDS: ASPIRIN CHEWABLE 81 MG TABLET. PO SCH (09:24)
[2021-05-22] MEDS: LISINOPRIL 10 MG TABLET PO SCH (09:25)
[2021-05-22 11:00] VITALS: BP 136/51
[2021-05-22] MEDS: DEXTROSE 50% 25 GM / 50ML DISP.SYRIN. IV PRN (11:37)
--- NOTE | 2021-05-22 11:48 | NUR ---
SW following. Discussed with RN, updates faxed to [facility]. SW requested [facility] check whether they could accept pt if insurance denies as pt is almost at 10 days since positive COVID test. Awaiting insurance auth and response from [facility]. JUAN will continue to follow. Addendum: 05/22/21 at 1427 by COLIN MARTINEZ [facility] can accept pt if insurance denies acute rehab. Addendum: 05/22/21 at 1608 by COLIN MARTINEZ Therapy worked with pt this afternoon and pt did really well, they are recommending she return home. JUAN spoke with pt's daughter and son, they are agreeable. [place] RN notified. RN getting discharge orders and calling pt's friend Miki Hale (ph: [phone]) for transport home.
--- NOTE | 2021-05-22 12:27 | PDOC ---
[employer] PROGRESS NOTE Date of Service DOS: May 21 late entry Chief Complaint Chief Complaint 1. COVID Pneumonia 2. Nausea/Vomiting 3. 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 05/19 Patient evaluated examined at bedside. Looks comfortable. Family contacted hospital they do not feel like she is ready for discharge. Would like her to go to rehab. Difficulties of rehab placement explained to them by social work. 05/20 Patient evaluated him at bedside. Awaiting insurance authorization for discharge to [facility] 05/21 Patient evaluated examined at bedside. No clinical changes. Awaiting insurance Auth still. Vitals/I&O Vitals/I&O: Vital Signs Date Time Temp Pulse Resp B/P (MAP) Pulse Ox O2 Delivery O2 Flow Rate FiO2 05/22/21 11:00 97.6 85 20 136/51 (79) 97 Room Air 97.6 I & O 05/21/21 05/21/21 05/22/21 15:00 23:00 07:00 Intake Total 240 ml Balance 240 ml Physical Exam General: Alert Heart: Regular rate Lungs: Clear Abdomen: Normal bowel sounds Extremities: No clubbing, No cyanosis Skin: No rashes, No breakdown Labs Labs: Laboratory Tests Test 05/21/21 16:59 05/21/21 20:02 05/22/21 07:44 05/22/21 11:26 Glucose (Fingerstick) 218 mg/dL (70-99) 250 mg/dL (70-99) 84 mg/dL (70-99) 43 mg/dL (70-99) Test 05/22/21 11:54 Glucose (Fingerstick) 187 mg/dL (70-99) Assessment and Plan Assessmemt and Plan Problems Medical Problems: (1) COVID Status: Acute (2) Pneumonia Status: Acute (3) Weakness Status: Acute Comment Review of Relevant I have reviewed the following items randi (where applicable) has been applied. Justifications for Admission Other Justification Intractable nausea vomiting and COVID-19 infection ISMAEL DUARTE MD May 22, 2021 12:27
--- NOTE | 2021-05-22 12:51 | PDOC ---
[employer] PROGRESS NOTE Date of Service DOS: DATE: 05/22/21 TIME: 12:51 Chief Complaint Chief Complaint 1. COVID Pneumonia 2. Nausea/Vomiting 3. 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 05/19 Patient evaluated examined at bedside. Looks comfortable. Family contacted hospital they do not feel like she is ready for discharge. Would like her to go to rehab. Difficulties of rehab placement explained to them by social work. 05/20 Patient evaluated him at bedside. Awaiting insurance authorization for discharge to [facility] 05/21 Patient evaluated examined at bedside. No clinical changes. Awaiting insurance Auth still. 05/22 Patient evaluated examined at bedside. Resting in bed no major clinical changes. Still waiting for placement. Vitals/I&O Vitals/I&O: Vital Signs Date Time Temp Pulse Resp B/P (MAP) Pulse Ox O2 Delivery O2 Flow Rate FiO2 05/22/21 11:00 97.6 85 20 136/51 (79) 97 Room Air 97.6 I & O 05/21/21 05/21/21 05/22/21 15:00 23:00 07:00 Intake Total 240 ml Balance 240 ml Physical Exam General: Alert Heart: Regular rate Lungs: Clear Abdomen: Normal bowel sounds Extremities: No clubbing, No cyanosis Skin: No rashes, No breakdown Labs Labs: Laboratory Tests Test 05/21/21 16:59 05/21/21 20:02 05/22/21 07:44 05/22/21 11:26 Glucose (Fingerstick) 218 mg/dL (70-99) 250 mg/dL (70-99) 84 mg/dL (70-99) 43 mg/dL (70-99) Test 05/22/21 11:54 Glucose (Fingerstick) 187 mg/dL (70-99) Assessment and Plan Assessmemt and Plan Problems Medical Problems: (1) COVID Status: Acute (2) Pneumonia Status: Acute (3) Weakness Status: Acute Comment Review of Relevant I have reviewed the following items randi (where applicable) has been applied. Justifications for Admission Other Justification Intractable nausea vomiting and COVID-19 infection ISMAEL DUARTE MD May 22, 2021 12:51
[2021-05-22 15:00] VITALS: BP 145/69
--- NOTE | 2021-05-22 18:00 | NUR ---
Patient was only given 10 units of Humalog per patients request, due to being hypoglycemic at lunch time and patient only eating about 50% at dinner time. Patient refused sliding scale.
--- NOTE | 2021-05-22 19:12 | NUR ---
Discharge Note: Patient was discharged home with home health services. Patients IV was discontinued without any complications per RN. Patient was given discharge summary/instructions, follow-ups, and educational material. Patients prescriptions were sent to patients preferred pharmacy. Patient did not have any further questions or concerns. Patient was taken down to the main entrance via wheelchair with all personal belongings accompanied by MARCIAL De La Cruz, where friend was waiting to take her home.
== END 2021-05-22 19:19 | disposition home health service (06) | DRG 177 ==
LOC: ER 09:09 → ED HOLD 13:45 → 5 SOUTH 15:00
PROVIDERS: ADMIT Internal Medicine; ATTEND Internal Medicine
DX: U07.1 COVID-19 (principal); N17.0 Acute kidney failure with tubular necrosis; J12.82 Pneumonia due to coronavirus disease 2019; I69.354 Hemiplegia and hemiparesis following cerebral infarction affecting left non-dominant side; J44.0 Chronic obstructive pulmonary disease with (acute) lower respiratory infection; D69.6 Thrombocytopenia, unspecified; E11.9 Type 2 diabetes mellitus without complications; E66.01 Morbid (severe) obesity due to excess calories; E83.42 Hypomagnesemia; I10 Essential (primary) hypertension; R62.7 Adult failure to thrive; Z88.8 Allergy status to other drugs, medicaments and biological substances; Z88.2 Allergy status to sulfonamides; Z68.39 Body mass index [BMI] 39.0-39.9, adult
CPT/HCPCS: 36415; 70450; 71045; 80048; 80053; 82962; 83735; 83880; 84100; 84145; 84484; 85025; 85379; 86140; 87426; 87804; 93005; 96361; 96365; 96375; 96376; J0456; J0696; J1100; J1644; J1815; J2405; J2920; J3475; J3490; J7030; J7060; 92526-GN; 92610-GN; 97110-GP; 97116-GP; 97530-GO; 97530-GP; 97535-GO; 99285-25; G0378; Q0163